=== PATIENT | male | born 1945 | race Hispanic/Latino ===

== ENCOUNTER 2017-01-18 06:50 | Day surgery (SDC) | payer MEDICARE, OTHER ==
[~2017-01-18] VITALS: Ht 172.7 cm; Wt 73.5 kg
[~2017-01-18 06:50] MED LIST: METFORMIN HCL500 MG PO; NORCO 5-325 TA1 EACH PO; TOPIRAMATE25 MG PO; ZOCOR40 MG PO
--- NOTE | 2017-01-18 09:41 | NUR ---
01/18/17 0941 Vicky Hurley 0972 PT ARRIVED WITH ORAL AIRWAY IN PLACE, 0993 ORAL AIRWAY REMOVED, PT REACTIVE.
--- NOTE | 2017-01-18 10:29 | NUR ---
PT RETURNED FROM PACU. PT REPORTS 3/10 PAIN (SEE MAR FOR MEDICATION GIVEN). PT DENIES NAUSEA. AT BEDSIDE. BED RAILS UP, CALL LIGHT WITH IN REACH.
--- NOTE | 2017-01-18 10:37 | NUR ---
PT UP TO RESTROOM. PT STEADY ON FEET WITH ONE PERSON STAND BY ASSIST. PT TOLERATING PO JELLO AND FLUIDS.
--- NOTE | 2017-01-18 10:42 | NUR ---
PT STEADY ON FEET WITH ON PERSON STAND BY ASSIST. PT TOLERATING PO FLUIDS AND FOOD, PT DENIES NAUSEA. PT REPORTS 4/10 PAIN THAT IS TOLERABLE. PT UP TO REST ROOM, VOIDS WITH EASE. PT DRESSES SELF. DISCHARG INSTRUCTIONS REVIEWED WITH PT. SISTER PRESENT AT BEDSIDE FOR DISCHARGE INSTRUCTIONS. PT VERBALIEZES UNDERSTANDING OF DISCHARGE INSTURCTIONS.
--- NOTE | 2017-01-18 10:44 | NUR ---
PLEASE NOTE: PAIN REASSESSEMENT AT 1044 NOTED INCORRECT SITE. PAIN SITE SHOULD BE THROAT.
--- NOTE | 2017-01-18 10:46 | NUR ---
DISCHARGE DOCUMENTED IN ERROR. PT IS STILL IN HOSPITAL AT THIS TIME.
--- NOTE | 2017-01-18 10:53 | NUR ---
PLEASE DISREGARD PAIN REASSESSMENT NOTE AT 1044. PAIN IS FOR THIS PATIENT IS LOCATED IN THE NASAL SEPTUM.
--- NOTE | 2017-01-18 11:24 | NUR ---
ELASTIC ASSEMBLER CALLED TO BEDSIDE. PT QUESTIONS ANSWERED. PT REPORTS 8/10 PAIN AT THIS TIME. PT REQEUSTS FOOD AND IS CHATTING WITH ELASTIC ASSEMBLER AND EASILY. PT ADVISED TO WAIT 20 MIN TO ALLOW PAIN MEDICINE TO WORK. NOTIFIED. LUNCH ORDERED FOR PT.
[2017-01-18] MEDS ORDERED: KEFLEX500 MG PO (11:44)
[2017-01-18] MEDS ORDERED: NORCO 5-325 TA1 EACH PO (11:44)
--- NOTE | 2017-01-18 11:44 | NUR ---
MD AT BEDSIDE WITH RN [employer], ANSWERING PT QUESTIONS R/T PAIN. PT EATING SANDWICH AND FRUIT
--- NOTE | 2017-01-18 12:14 | NUR ---
PT CALL LIGHT ON. PT FINISHED WITH LUNCH AND UP TO RESTROOM. NASAL DRESSING CHANGED.
--- NOTE | 2017-01-18 12:21 | NUR ---
CONTINUATION FROM PREVIOUS NOTE - OUTTER DRESSING CHANGED. GAUZE REPLACED, TAPE REPLACED, PACKING LEFT IN PLACE. EDUCATION PROVIDED FOR PT AND R/T CHANGING GAUZE IF NEEDED. PT AND TOLD TO LEAVE THE PACKING IN PLACE UNTIL FOLLOW UP APPOINTMENT. WARM BLANKETS PROVIDED FOR PT. PT ADVISED THAT HE MEETS CRITERIA TO GO HOME. PT STATES HE WOULD LIKE TO STAY LONGER TO REST AND WAIT UNTIL THE DR. OFFICE OPENS SO THAT "WE CAN MAKE APPOINTMENT FOR HIM."
--- NOTE | 2017-01-18 12:53 | NUR ---
PT UP TO BR W/RN STANDBY. PT VOIDS SUCCESSFULLY AND IS BACK IN BED. SPOUSE @ BS. PT DENIES ADD'L NEEDS @ THIS TIME.
--- NOTE | 2017-01-18 14:06 | NUR ---
PT AMBULATES, TOLERATES PO FOOD AND FLUIDS AND NOW REPORTING 1/10 PAIN. PT DENIES NAUSEA. PIV DC'D PER PROTOCOL, WNL. COBAN AND GAUZE APPLIED. PT ADVISED THAT HE CAN LOOSEN COBAN IF IT BECOMES TOO TIGHT. DISCHARGE INSTRUCTIONS REVIEWED WITH PT. BILLING REP USED FOR ENTIRE INTERACTION. PT AND VERBALIZES UNDERSTANDING OF DISCHARGE INSTRUCTIONS. SARAH'S OFFICE CALLED AGAIN. FOLLOW UP APPOINTMENT MADE AND GIVEN TO PT. PT VERBALIZES UNDERSTANDING. SON PICKED UP PT AND AT HOSPITAL DOOR.
--- NOTE | 2017-02-08 15:10 | OR ---
[facility] [address], [place] [address] Signed DATE OF PROCEDURE: 01/18/17 PREOPERATIVE DIAGNOSIS: Septal deformity, inferior turbinate hypertrophy. POSTOPERATIVE DIAGNOSIS: Septal deformity, inferior turbinate hypertrophy. PROCEDURE: Septoplasty, cautery of bilateral inferior turbinates. SURGEON: Jefferson Smith MD. ANESTHESIA: General LMA, Martha Cohen CRNA. PREOPERATIVE HISTORY Trey is a 71-year-old male with nasal obstruction due to septal deformity and inferior turbinate hypertrophy. This has been unresponsive to appropriate medications. He is taken to the operating room for the above-mentioned procedures. OPERATIVE PROCEDURE AND FINDINGS After informed consent, the patient was taken to the operating room, placed in supine position where general LMA anesthesia was induced. The patient and procedure were verified. The patient received preoperative intranasal oxymetazoline and intravenous Ancef. Headlight speculum exam of the nasal cavity showed a septal deformity on the right side, a large spur posteriorly, and a caudal deflection anteriorly. Turbinates were nicely decongested. Septoplasty was performed. 1% Lidocaine with Epi was injected on the right side. Incision was made over the caudal deflection. Dissection carried down on either side of the septal cartilage and the deviated septal cartilage was all removed with the Edgard. The deflection was corrected in this manner. Minimal bleeding. The incision was closed with 4-0 interrupted Vicryl. The spur posteriorly was removed with elevation of the mucosa off the spur and Edgard removal of the deviated cartilage and bone. Minimal bleeding. The inferior turbinates were then cauterized with a long handle needle point cautery starting on the left side. Multiple passes transmucosal starting anteriorly extending all the way back posteriorly on the medial and inferior surface of the inferior turbinate. Excellent shrinkage in the size of the turbinate was obtained in this manner. Same procedure on the right inferior turbinate. Packing was then placed. Merocel pack trimmed. Equal amount on each side coated with Neosporin tied anteriorly over a pad. Hemostasis was verified. The pharynx was suctioned clear of blood and secretions. The patient was awakened, extubated, transported to recovery room in good condition. No complications. BLOOD LOSS: Minimal. Electronically Signed By: JEFFERSON SMITH MD 02/08/17 1510 PATIENT NAME: TREY WATTS OPERATIVE REPORT DATE OF : 49 PHYSICIAN: JEFFERSON SMITH MD REPORT #: [id number] REPORT IS CONFIDENTIAL AND NOT TO BE RELEASED WITHOUT AUTHORIZATION [facility] [address] [place] [address] Signed SPECIMENS: No specimen. DRAINS: No drains. PACKING: One piece of Merocel each nostril. Jefferson Smith MD GC/Carol /[id number] cc: Giles Zepeda MD Electronically Signed By: JEFFERSON SMITH MD 02/08/17 1510 PATIENT NAME: TREY WATTS OPERATIVE REPORT DATE OF : 49 PHYSICIAN: JEFFERSON SMITH MD REPORT #: [id number] REPORT IS CONFIDENTIAL AND NOT TO BE RELEASED WITHOUT AUTHORIZATION
== END 2017-01-18 14:00 | disposition home or self-care (01) ==
LOC: DS 06:50
PROVIDERS: Otolaryngology
PROC: 095L0ZZ Destruction of Nasal Turbinate, Open Approach (ICD-10-PCS; 2017-01-18)
PROC: 09SM0ZZ Reposition Nasal Septum, Open Approach (ICD-10-PCS; principal; 2017-01-18 08:15)
DX: J34.2 Deviated nasal septum (principal); J34.3 Hypertrophy of nasal turbinates; J34.89 Other specified disorders of nose and nasal sinuses; E11.9 Type 2 diabetes mellitus without complications; E78.5 Hyperlipidemia, unspecified
CPT/HCPCS: 00160; J0690; J1100; J2250; J2370; J2405; J2704; J3010; J7120

== ENCOUNTER 2017-02-05 07:11 | Emergency (ER) | payer MEDICARE, OTHER ==
[~2017-02-05] VITALS: Ht 172.7 cm; Wt 73.5 kg
[~2017-02-05 07:11] MED LIST changes: +KEFLEX500 MG PO
[2017-02-05] MEDS ORDERED: AUGMENTIN 875-1 EACH PO (07:33)
[2017-02-05] MEDS ORDERED: CLARITIN10 MG PO (07:33)
== END 2017-02-05 07:49 | disposition home or self-care (01) ==
LOC: ED 07:11
DX: R04.0 Epistaxis (principal); J32.9 Chronic sinusitis, unspecified; E11.9 Type 2 diabetes mellitus without complications; E78.00 Pure hypercholesterolemia, unspecified; Z79.84 Long term (current) use of oral hypoglycemic drugs; Z79.899 Other long term (current) drug therapy
CPT/HCPCS: 99283

== ENCOUNTER 2018-06-25 09:45 | Emergency (ER) | payer MEDICARE ==
[~2018-06-25] VITALS: Ht 172.7 cm; Wt 73.5 kg
--- OUTSIDE RECORDS SUMMARY | ~2018-06-25 | XMS | Clinical Summary ---
Demographics + + + | Address | [address] | | | [place] [address] | + + + | Home Phone | | + + + | Preferred Language | Unknown | + + + | Marital Status | Unknown | + + + | Amish Affiliation | Unknown | + + + | Race | Unknown | + + + | Ethnic Group | Unknown | + + + Author + + + | Author | [facility] | + + + | Organization | [facility] | + + + | Address | Unknown | + + + | Phone | Unavailable | + + + Care Team Providers + +------+ + | Care Brainer Name | Role | Phone | + +------+ + PP | Unavailable | + +------+ + Source Comments [facility] is fully live on both [facility] and [facility] InPatient.[facility] Allergies Not on File Current Medications Not on file Active Problems Not on file Social History + +-------+ +--------+------+ | Tobacco Use | Types | Packs/Day | Years | Date | | | | | Used | | + +-------+ +--------+------+ | Never Assessed | | | | | + +-------+ +--------+------+ + + + | Sex Assigned at | Date Recorded | | | | + + + | Not on file | | + + + Plan of Treatment + + + + + | Health Maintenance | Due Date | Last Done | Comments | + + + + + | Pneumococcal (Adult) | | | | | (1 of 2 - PCV13) | 3 | | | + + + + + | Influenza (Flu) | | | | | vaccination (#1) | 8 | | | + + + + + Results Not on filefrom Last 3 Months"
--- OUTSIDE RECORDS SUMMARY | ~2018-06-25 | XMS | Clinical Summary ---
Demographics + + + | Address | [address] | | | [place] [address] | + + + | Home Phone | | + + + | Preferred Language | Unknown | + + + | Marital Status | Unknown | + + + | Church Affiliation | Unknown | + + + [...] Team Providers + +------+ + | Care Rn Ent Name | Role | Phone | + +------+ + PP | Unavailable | + +------+ + Source Comments [facility] is fully live on both [facility] and [facility] InPatient.[facility] Allergies Not on File Current Medications Not [...]
--- OUTSIDE RECORDS SUMMARY | ~2018-06-25 | XMS | Clinical Summary ---
Demographics + + + | Address | [address] [place] [address] | | | [place] [address] | + + + | Home Phone | | + + + | Preferred Language | Unknown | + + + | Marital Status | Single | + + + | Synagogue Affiliation | Unknown | + + + | Race | Unknown | + + + | Ethnic Group | Unknown | + + + Author + + + | Author | [facility] [employer] | + + + | Organization | [facility] [employer] | + + + | Address | Unknown | + + + | Phone | Unavailable | + + + Support + + + + + | Name | Relationship | Address | Phone | + + + + + | Rachel Jacobo | ECON | [address] | | | | | [place] | | | | | [phone] | | + + + + + | Detailed,Message | ECON | [address] | | | | | [place] | | | | | [phone] | | + + + + + | Adrián estrada | ECON | Unknown | Unavailable | | [place] | | | | + + + + + Care Team Providers + +------+ + | Care Drilling Assistant Name | Role | Phone | + +------+ + | Giles Zepeda MD | PP | | + +------+ + Allergies No Known Allergies Current Medications + + +--------+---------+------+------+-------+ | Prescription | Sig. | Disp. | Refills | Star | End | Statu | | | | | | t | Date | s | | | | | | Date | | | + + +--------+---------+------+------+-------+ | metformin | Take 500 mg by mouth | | | | | Activ | | (GLUCOPHAGE) 500 MG | 2 (two) times daily | | | | | e | | tablet | with meals. | | | | | | + + +--------+---------+------+------+-------+ | pravastatin | Take 40 mg by mouth | | | | | Activ | | (PRAVACHOL) 40 MG | daily. | | | | | e | | tablet | | | | | | | + + +--------+---------+------+------+-------+ | ibuprofen | Take 800 mg by mouth | | | | | Activ | | (ADVIL,MOTRIN) 800 | every 4 (four) | | | | | e | | MG tablet | hours as needed. | | | | | | + + +--------+---------+------+------+-------+ | ibuprofen | Take 200 mg by mouth | | | | | Activ | | (ADVIL,MOTRIN) 200 | 3 (three) times | | | | | e | | MG tablet | daily. | | | | | | + + +--------+---------+------+------+-------+ | topiramate | Take one tablet in | 90 | 3 | 11/0 | | Activ | | (TOPAMAX) 25 MG | the morning and 2 | tablet | | 6/20 | | e | | tablet | tablets at bedtime | | | 12 | | | | | for headaches. | | | | | | + + +--------+---------+------+------+-------+ | fluticasone | 1 spray by Nasal | | | | | Activ | | (FLONASE) 50 MCG/ACT | route daily. | | | | | e | | nasal spray | | | | | | | + + +--------+---------+------+------+-------+ | methylPREDNISolone | Take 4 mg by mouth 2 | | | | | Activ | | (MEDROL DOSEPACK) 4 | (two) times daily. | | | | | e | | MG tablet | follow package | | | | | | | | directions | | | | | | + + +--------+---------+------+------+-------+ Active Problems + + + | Problem | Noted Date | + + + | Headache(784.0) | 02/15/2012 | + + + | Post concussion syndrome | 12/27/2011 | + + + | Diabetes mellitus (HCC) | 12/27/2011 | + + + | Hyperlipidemia | 12/27/2011 | + + + Resolved Problems + + + + | Problem | Noted | Resolved | | | Date | Date | + + + + | Analgesic overuse headache | 12/27/19 | | | | 12 | 2 | + + + + Family History + + +------+ + | Medical History | Relation | Name | Comments | + + +------+ + | Diabetes type II | Brother | | | + + +------+ + + +------+--------+ + | Relation | Name | Status | Comments | + +------+--------+ + | Brother | | | | + +------+--------+ + Social History + + + +--------+ + | Tobacco Use | Types | Packs/Day | Years | Date | | | | | Used | | + + + +--------+ + | Former Smoker | Cigarettes | | | Quit: 07/19/1990 | + + + +--------+ + + + +---------+ + | Alcohol Use | Drinks/We | oz/Week | Comments | | | ek | | | + + +---------+ + | No | | | | + + +---------+ + + + + | Sex Assigned at | Date Recorded | | | | + + + | Not on file | | + + + Last Filed Vital Signs + + + + | Vital Sign | Reading | Time Taken | + + + + | Blood Pressure | 126/80 | 11/07/2012 9:10 AM PDT | + + + + | Pulse | 55 | 11/07/2012 9:10 AM PDT | + + + + | Temperature | - | - | + + + + | Respiratory Rate | - | - | + + + + | Oxygen Saturation | - | - | + + + + | Inhaled Oxygen | - | - | | Concentration | | | + + + + | Weight | 82.6 kg (182 lb) | 11/07/2012 9:10 AM PDT | + + + + | Height | 172.7 cm (5' 8") | 11/07/2012 9:10 AM PDT | + + + + | Body Mass Index | 27.67 | 11/07/2012 9:10 AM PDT | + + + + Plan of Treatment + + + + + | Health Maintenance | Due Date | Last Done | Comments | + + + + + | Vaccine: | | | | | Dtap/Tdap/Td (1 - | 7 | | | | Tdap) | | | | + + + + + | Vaccine: Zoster (1 | | | | | of 2) | 8 | | | + + + + + | Vaccine: | | | | | Pneumococcal 65+ | 3 | | | | Low/Medium Risk (1 | | | | | of 2 - PCV13) | | | | + + + + + | Vaccine: Influenza | | | | | (#1) | 8 | | | + + + + + Results Not on filefrom Last 3 Months Insurance + +--------+ +------+-------+ + | Payer | Benefi | Subscriber | Type | Phone | Address | | | t Plan | ID | | | | | | / | | | | | | | Group | | | | | + +--------+ +------+-------+ + | MEDICARE | MEDICA | [id number] | | | [address] | | | RE | | | | [place] [id number] | | | IP-OP | | | | | + +--------+ +------+-------+ + | COMMERCIAL OTHER | TRANSA | [id number] | | | | | | [place] | | | | | | | LIFE | | | | | + +--------+ +------+-------+ + + +--------+ +--------+ + + | Guarantor Name | Accoun | Relation to | Date | Phone | Billing Address | | | t Type | Patient | of | | | | | | | | | | + +--------+ +--------+ + + | TREY JACOBO | Person | 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
--- OUTSIDE RECORDS SUMMARY | ~2018-06-25 | XMS | Clinical Summary ---
Demographics + + + | Address | [address] [place] [address] | | | [place] [address] | + + + | Home Phone | | + + + | Preferred Language | Unknown | + + + | Marital Status | Single | + + + | Shinto Affiliation | Unknown | + + + | Race | Unknown | + + + | Ethnic Group | Unknown | + + + Author + + + | Author | [facility] [employer] | + + + | Organization | [facility] [employer] | + + + | Address | Unknown | + + + | Phone | Unavailable | + + + Support + + + + + | Name | Relationship | Address | Phone | + + + + + | Rachel Jacobo | ECON | [address] | | | | | [place] | | | | | [phone] | | + + + + + | Detailed,Message | ECON | [address] | | | | | [place] | | | | | [phone] | | + + + + + | Adrián estrada | ECON | Unknown | Unavailable | | [place] | | | | + + + + + Care Team Providers + +------+ + | Care Animal Damage Control Agent Name | Role | Phone | + [...] +------+-------+ + | MEDICARE | MEDICA | [id number] | | | [address] | | | RE | | | | [place] [phone] | | | IP-OP | | | | | + +--------+ +------+-------+ + | COMMERCIAL OTHER | TRANSA | [id number] | | | | | | MERICA [...] | | al/Fam | | 1946 | [phone] | [place] | | | [place] | | | [address]: | [phone] | | | | | | | | | | | | | [phone] | | | | | | | [phone] | | + +--------+ +--------+ + + | TREY JACOBO | Third | Self | [birth year] | Work: | [address] | | | [employer] | | 1946 | [phone] | [place] | | | [place] | | | [address]: | [phone] | | | ity | | | | | | | | | | [phone] | | | | | | | [phone] | | + +--------+ +--------+ + +
[~2018-06-25 09:45] MED LIST changes: +AUGMENTIN 875-1 EACH PO; +CLARITIN10 MG PO
[2018-06-25] MEDS ORDERED: NORCO 5-325 TA1 EACH PO (10:43)
[2018-06-25] MEDS ORDERED: ONDANSETRON ODT8 MG PO (10:43)
[2018-06-25] MEDS ORDERED: ZITHROMAX250 MG PO (10:43)
== END 2018-06-25 11:09 | disposition home or self-care (01) ==
LOC: ED 09:45
DX: J40 Bronchitis, not specified as acute or chronic (principal); H66.92 Otitis media, unspecified, left ear; E11.9 Type 2 diabetes mellitus without complications; E78.00 Pure hypercholesterolemia, unspecified; Z79.84 Long term (current) use of oral hypoglycemic drugs; Z79.899 Other long term (current) drug therapy
CPT/HCPCS: 99283

== ENCOUNTER 2020-09-26 18:42 | Emergency (ER) | payer MEDICARE, OTHER ==
[~2020-09-26] VITALS: Ht 172.7 cm; Wt 76.7 kg
[~2020-09-26 18:42] MED LIST changes: +ONDANSETRON ODT8 MG PO; +ZITHROMAX250 MG PO
[2020-09-26] MEDS ORDERED: JANUVIA100 MG PO (19:29)
[2020-09-26] MEDS ORDERED: GLIPIZIDE ER10 MG PO (19:29)
== END 2020-09-26 20:35 | disposition home or self-care (01) ==
LOC: ED 18:42
PROC: 0HQGXZZ Repair Left Hand Skin, External Approach (ICD-10-PCS; principal; 2020-09-26)
DX: S61.012A Laceration without foreign body of left thumb without damage to nail, initial encounter (principal); E11.9 Type 2 diabetes mellitus without complications; E78.00 Pure hypercholesterolemia, unspecified; Z79.899 Other long term (current) drug therapy; Z79.84 Long term (current) use of oral hypoglycemic drugs; W26.0XXA Contact with knife, initial encounter; Z23 Encounter for immunization
CPT/HCPCS: 12001; 90471; 90715; 99282-25